=== PATIENT | male | born 1970 | race Caucasian/White ===

== ENCOUNTER 2017-01-02 11:13 | Outpatient (CLI) ==
[2014-01-25 09:26] VITALS: BMI 25.0
[2017-01-02 11:47] LABS: FLU INTERNAL QC INTERNAL QC VALID; RAPID FLU A NEGATIVE (NEGATIVE); RAPID FLU B POSITIVE (NEGATIVE)
== END 2017-01-02 11:14 | disposition home or self-care (01) ==
LOC: LAB 11:13
PROVIDERS: ATTEND Nurse Practitioner Family
DX: R50.9 Fever, unspecified (principal); R52 Pain, unspecified
CPT/HCPCS: 87804

== ENCOUNTER 2017-04-13 12:35 | Outpatient (CLI) ==
[2014-01-25 09:26] VITALS: BMI 25.0
[2017-04-13 13:22] LABS: ALBUMIN 3.8 g/dL (3.4-5.0); ALBUMIN/GLOBULIN RATIO 1.19; ANION GAP 11.7; BASOPHILS # (AUTO) 0.1 K/uL (0-0.2); BASOPHILS % (AUTO) 1.1 % (0.0-3.0); BILIRUBIN,TOTAL 0.34 mg/dL (0.00-1.20); BUN/CREATININE RATIO 8.69; CALCIUM 9.2 mg/dL (8.2-10.2); CREATININE 1.15 mg/dL (0.60-1.10); EOSINOPHILS # (AUTO) 0.3 K/ul (0.0-0.7); EOSINOPHILS % (AUTO) 3.5 % (0.0-7.0); HEMATOCRIT 41.2 % (42.0-52.0); HEMOGLOBIN 14.2 g/dl (14.0-18.0); IMMATURE GRANULOCYTE % (AUTO) 0.6 % (0.0-5.0); LYMPHOCYTES # (AUTO) 2.6 K/uL (0.60-3.4); LYMPHOCYTES % (AUTO) 26.3 (10.0-50.0); MEAN CORPUSCULAR HEMOGLOBIN 34.1 pg (27.0-31.0); MEAN CORPUSCULAR HGB CONC 34.5 (31.8-35.4); MONOCYTES # (AUTO) 0.8 K/uL (0.4-2.0); MONOCYTES % (AUTO) 8.5 (0-10); NEUTROPHILS # (AUTO) 5.8 K/ul (2.0-6.9); PLATELET COUNT 220 10^3/uL (140-440); POTASSIUM 4.7 mmol/L (3.5-5.1); RED BLOOD COUNT 4.16 10^6/ul (4.70-6.10); WHITE BLOOD COUNT 9.69 K/ul (4.2-10.2)
--- NOTE | 2017-04-13 14:03 | CT ---
EXAM: CT chest without contrast. HISTORY: Chest pain following a fall. Initial presentation. COMPARISON: None available. TECHNIQUE: Multiple axial images of the chest were obtained without intravenous contrast. Images w ere reformatted in the sagittal and coronal planes. FINDINGS: Calcified mediastinal and right hilar lymph nodes are present. Evaluation for lymphadeno jason is limited by lack of intravenous contrast. Heart size is normal. There is no pericardial ef fusion. Thoracic aorta is normal in caliber. The lungs are clear save for mild subsegmental atelectasis in the lung bases. Calcified granulomato us changes noted. No pleural effusion or pneumothorax identified. No acute osseous abnormality identified. Limited images of the upper abdomen are unremarkable. IMPRESSION: No acute abnormality of the chest.
== END 2017-04-13 12:36 | disposition home or self-care (01) ==
LOC: RAD 12:35
PROVIDERS: ATTEND Emergency Medicine
DX: R07.82 Intercostal pain (principal); W19.XXXA Unspecified fall, initial encounter
CPT/HCPCS: 36415; 80053; 85025

== ENCOUNTER 2017-04-14 13:52 | Outpatient (CLI) ==
[2014-01-25 09:26] VITALS: BMI 25.0
--- NOTE | 2017-04-14 14:58 | CT ---
EXAM: CT of the sinuses/maxillofacial region without contrast History: Trauma of the face. Technique: Multiplanar CT images through the sinuses/maxillofacial region were obtained without the administration of IV contrast Findings: Orbits are intact. Surrounding soft tissues demonstrate no grossly acute findings. The visualized intracranial contents demonstrate no acute abnormality. No acute fracture or dislocation. Complete opacification of the bilateral maxillary sinuses. Modera te mucosal thickening of the ethmoid air cells. Mild mucosal thickening of the sphenoid sinuses and mild to moderate mucosal thickening of the frontal sinuses. Mastoid air cells are clear. Bilatera l ostiomeatal units are at least partially occluded. Nasal septum is undulating but bowed more to t he right. Impression: 1. No acute fracture. 2. Paranasal sinusitis as detailed above which is severe involving the bilateral maxillary sinuses.
== END 2017-04-14 13:53 | disposition home or self-care (01) ==
LOC: RAD 13:52
PROVIDERS: ATTEND Emergency Medicine
DX: S09.93XA Unspecified injury of face, initial encounter (principal); W19.XXXA Unspecified fall, initial encounter

== ENCOUNTER 2018-03-13 09:59 | Outpatient (CLI) ==
[2014-01-25 09:26] VITALS: BMI 25.0
== END 2018-03-13 10:00 | disposition home or self-care (01) ==
LOC: LAB 09:59
PROVIDERS: ATTEND Internal Medicine
DX: E66.9 Obesity, unspecified (principal); Z82.49 Family history of ischemic heart disease and other diseases of the circulatory system; Z83.1 Family history of other infectious and parasitic diseases
CPT/HCPCS: 36415; 80053; 80061; 80074; 83036; 84439; 84443; 85025

== ENCOUNTER 2019-03-19 15:58 | Outpatient (CLI) ==
[2014-01-25 09:26] VITALS: BMI 25.0
--- NOTE | 2019-03-20 08:52 | DI ---
EXAM: Two views of the chest. History: Chronic obstructive pulmonary disease Comparison: Chest radiograph 10/22/2009, chest CT 04/13/2017 Findings: Heart size is normal. No focal consolidation. No appreciable pleural fluid and no pneumo thorax. No acute osseous abnormalities. Calcified granulomas are seen within the thorax. Impression: No acute cardiopulmonary process
== END 2019-03-19 15:59 | disposition home or self-care (01) ==
LOC: LAB 15:58
PROVIDERS: ATTEND Internal Medicine
DX: E78.5 Hyperlipidemia, unspecified (principal); R73.9 Hyperglycemia, unspecified; J44.9 Chronic obstructive pulmonary disease, unspecified; F17.210 Nicotine dependence, cigarettes, uncomplicated
CPT/HCPCS: 36415; 80053; 80061; 83036; 84443; 85025

== ENCOUNTER 2019-03-22 12:40 | Outpatient (CLI) ==
[2014-01-25 09:26] VITALS: BMI 25.0
== END 2019-03-22 12:41 | disposition home or self-care (01) ==
LOC: CAR 12:40
PROVIDERS: ATTEND Internal Medicine
DX: J44.9 Chronic obstructive pulmonary disease, unspecified (principal); F17.210 Nicotine dependence, cigarettes, uncomplicated
CPT/HCPCS: 93005; 93010

== ENCOUNTER 2019-05-20 11:37 | Emergency (ER) ==
[2019-05-20 11:40] VITALS: BP 119/78; TEMP 98; BMI 24.5
--- NOTE | 2019-05-20 13:37 | CT ---
EXAM: CT lumbar spine without contrast HISTORY: 2 days ago, low back pain COMPARISON: None TECHNIQUE: CT lumbar spine performed without intravenous contrast. Coronal and sagittal reformatted images obtained. FINDINGS: Vertebral bodies normal height. No fracture. No subluxation. Mild multilevel marginal o steophyte formation. Mild multilevel intervertebral disc space narrowing. Multilevel posterior disc osteophyte complex and facet arthrosis with degenerative changes causing mild multilevel central can al narrowing and mild multilevel bilateral neural foraminal narrowing with moderate bilateral neural foraminal narrowing at L4-L5. Sacroiliac joints intact with mild degenerative change. Atherosclerosi s. 4 mm nodule left lung image 9, new from CT chest 04/13/2016. IMPRESSION: 1. No fracture or subluxation. 2. Chronic discogenic degenerative disease and facet arthrosis. 3. 4 mm nodule left lung base, new from CT chest 04/13/2017. Recommend CT chest follow-up in 6 [facility].
--- NOTE | 2019-05-20 13:49 | ED.PDOC ---
General ED Provider: Dr. ROHIT JOHNS Chief Complaint: Back Pain Stated Complaint: low back pain after a fall 2 days ago Time Seen by Physician: 11:45 (seen with his nurse and onD/C WITH FELIX FUENTES ) Mode of Arrival: Walk-In Information Source: Patient Exam Limitations: No limitations Primary Care Provider: RIZWAN GATES Nursing and Triage Documentation Reviewed and Agree: No Does patient meet sepsis criteria?: No System Inflammatory Response Syndrome: Not Applicable Sepsis Protocol: For patient's 13 years and over: Temp is 96.8 and below OR 101 and greater Pulse >90 BPM Resp >20/minute Acutely Altered Mental Status Are patient's symptoms suggestive of a new infection, such as: -Pneumonia -Skin, Soft Tissue -Endocarditis -UTI -Bone, Joint Infection -Implantable Device -Acute Abdominal Infection -Wound Infection -Meningitis -Blood Stream Catheter Infection -Unknown Musculoskeletal Complaint Exam - Back Pain Complaint/Exam Mechanism of Injury: Reports: Trauma Onset/Duration: 2 DAYS Symptoms Are: Still present Timing: Intermittent Episodes Lasting: Days Initial Severity: Moderate Current Severity: Mild Location: Reports: Discrete (LEFT FLANK AND BACK) Character: Reports: Aching, Spasmodic, Stiffness Aggravating: Reports: Movements Alleviating: Reports: Rest Associated Signs and Symptoms: Denies: Swelling, Redness, Bruising, Fever, Weakness, Numbness, Tingling, Abdominal pain, Flank pain, Bladder incontinence, Bowel incontinence, Weight loss, Pain with weight bearing TAD Risk Factors: Reports: None AAA Risk Factors: Reports: None Cauda Equina Risk Factors: Reports: None Focal Tenderness: No Paraspinal Muscle Tenderness: No Paraspinal Muscle Spasm: No Scoliosis: No Lordosis: No Kyphosis: No Focal Weakness: Present: None Focal Sensory Loss: Present: None Gait: Present: Normal Differential Diagnoses: Strain, Sprain Review of Systems - Review Of Systems Constitutional: Reports: No symptoms Eyes: Reports: No symptoms Ears, Nose, Mouth, Throat: Reports: No symptoms Respiratory: Reports: No symptoms Cardiac: Reports: No symptoms GI: Reports: No symptoms : Reports: No symptoms Musculoskeletal: Reports: Back pain Skin: Reports: No symptoms Neurological: Reports: No symptoms Endocrine: Reports: No symptoms Hematologic/Lymphatic: Reports: No symptoms All Other Systems: Reviewed and Negative Past Medical History - Past Medical History Previously Healthy: Yes Endocrine: Reports: None Cardiovascular: Reports: None Respiratory: Reports: None Hematological: Reports: None Gastrointestinal: Reports: None Genitourinary: Reports: None Neuro/Psych: Reports: None Musculoskeletal: Reports: None Cancer: Reports: None - Surgical History General Surgical History: Reports: None - Family History Family History: Reports: None - Social History Smoking Status: Former smoker Hx Substance Use: No Alcohol Screening: Occasionally Physical Exam - Physical Exam Appearance: Well-appearing, No pain distress, Well-nourished Eyes: MARY, EOMI, Conjunctiva clear ENT: Ears normal, Nose normal, Oropharynx normal Respiratory: Airway patent, Breath sounds clear, Breath sounds equal, Respirations nonlabored Cardiovascular: RRR, Pulses normal, No rub, No murmur GI/: Soft, Nontender, No masses, Bowel sounds normal, No Organomegaly Musculoskeletal: Normal strength, ROM intact, No edema, No calf tenderness Skin: Warm, Dry, Normal color Neurological: Sensation intact, Motor intact, Reflexes intact, Cranial nerves intact, Alert, Oriented Psychiatric: Affect appropriate, Mood appropriate Interpretation - Radiology Interpretation Radiology Interpretation By: Radiologist Radiology Results: No acute changes Exam Interpreted: CT Scan (ANY BONY INJURY REPRT WAS GIVEN VERBAL WELL A COPY TO THE PT ) Critical Care Note - Critical Care Note Total Time (mins): 0 Course - Course Orders, Labs, Meds: Orders Category Date Time Status CT LUMBAR SPINE W/O CONTRAST Stat RADS 05/20/19 11:54 Completed Vital Signs: Temp Pulse Resp BP Pulse Ox 05/20/19 11:38 98.0 F 78 20 119/78 98 Departure - Departure Time of Disposition: 13:49 Disposition: HOME SELF-CARE Discharge Problem: Backache Low back pain Qualifiers: Chronicity: acute Back pain laterality: unspecified Sciatica presence: without sciatica Qualified Code(s): M54.5 - Low back pain Instructions: Back Pain (ED) Condition: Good Pt referred to PMD for follow-up: Yes IPMP verified?: No Additional Instructions: Please call your Family Physician as soon as possible to schedule a follow-up appointment. Allergies/Adverse Reactions: Allergies Penicillins Adverse Reaction (Verified 05/20/19 11:40) Home Medications: Ambulatory Orders 1 [No Reported Medications] 01/25/14 Disposition Discussed With: Patient
== END 2019-05-20 13:55 | disposition home or self-care (01) ==
LOC: ED 11:37
DX: M54.5 Low back pain (principal); W19.XXXA Unspecified fall, initial encounter
CPT/HCPCS: 99282

== ENCOUNTER 2019-06-05 08:00 | Outpatient (CLI) ==
--- NOTE | 2019-06-05 09:32 | CT ---
EXAM: CT of the chest with contrast History: Follow-up lung nodules. Comparison: Chest CT 04/13/2017 Technique: Multiplanar CT images through the thorax were obtained without the administration of IV c ontrast Findings: Heart size is normal. No pericardial effusion. Great vessels are unremarkable. No patho logically enlarged thoracic lymph nodes. Calcified granulomas are again seen within the thorax. No consolidation. No pleural fluid and no pneumothorax. No suspicious lung masses or lung nodules. Within the visualized upper abdomen, no acute findings. No acute osseous abnormalities. Impression: 1. No acute intrathoracic process. 2. Old granulomatous disease. 3. No suspicious lung masses or lung nodules. No additional follow-up is needed.
== END 2019-06-05 08:01 | disposition home or self-care (01) ==
LOC: RAD 08:00
PROVIDERS: ATTEND Internal Medicine
DX: R91.1 Solitary pulmonary nodule (principal)
CPT/HCPCS: 36415; 82565